=== PATIENT | male | born 1950 | race Two or more races ===

== ENCOUNTER 2017-04-09 15:23 | Inpatient (IN) | payer OTHER ==
[~2017-04-09] VITALS: Ht 172.7 cm; Wt 90.7 kg
--- NOTE | 2017-04-09 15:31 | NUR ---
Leila nunez in [facility] - 04/09/17 at 1634 by CHUCKY CARON EDWARDS AT [facility] FOR EVAL.
--- NOTE | 2017-04-09 15:32 | NUR ---
PT BIBRA FROM SN[facility] TO ER BED 11. PER REPORT, PT WAS EXPRESSING SI BUT NO ACTIVE PLAN. 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 DENIES PAIN OR ANY DISCOMFORT. STABLE VITALS. AWAITING MD DE PAZ.
--- NOTE | 2017-04-09 15:35 | NUR ---
DR EDWARDS AT BEDSIDE FOR EVAL.
--- NOTE | 2017-04-09 15:37 | NUR ---
INFORMED NURSE SUP FOR GPS BED
[2017-04-09 15:38] LABS: BASOPHILS # (AUTO) 0.1 /CMM (0.0-0.2); BASOPHILS % (AUTO) 0.7 % (0.0-2.0); EOSINOPHILS # (AUTO) 0.3 /CMM (0.0-0.7); EOSINOPHILS % (AUTO) 3.5 % (0.0-6.0); HEMATOCRIT 49 % (39-51); HEMOGLOBIN 16.3 g/dL (13.5-17.5); LYMPHOCYTES # (AUTO) 2.2 /CMM (0.8-4.8); LYMPHOCYTES % (AUTO) 26.1 % (20.0-44.0); MEAN CORPUSCULAR HEMOGLOBIN 30 PG (26.0-33.0); MEAN CORPUSCULAR HGB CONC 33 g/dl (31.0-36.0); MEAN CORPUSCULAR VOLUME 89 fL (80-96); MONOCYTES # (AUTO) 0.7 /CMM (0.1-1.30); MONOCYTES % (AUTO) 7.8 % (2.0-12.0); NEUTROPHILS # (AUTO) 5.2 /CMM (1.8-8.9); NEUTROPHILS % (AUTO) 61.9 % (43.0-81.0); PLATELET COUNT (AUTO) 245 /CMM (150-450); RED BLOOD CELL COUNT(AUTO) 5.54 MIL/uL (4.5-6.0); WHITE BLOOD COUNT (AUTO) 8.6 K/uL (4.3-11.0)
[2017-04-09 15:48] LABS: CALCIUM, SERUM 9.2 mg/dL (8.5-10.1); CARBON DIOXIDE 31 mmol/L (21-32); CHLORIDE 104 mmol/L (98-107); GLUCOSE 121 mg/dL (74-106); POTASSIUM 3.7 mmol/L (3.5-5.1); SODIUM SERUM 140 mmol/L (136-145); UREA NITROGEN, BLOOD 13 mg/dL (7-18)
[2017-04-09 15:53] LABS: ALANINE AMINOTRANSFERASE 21 U/L (12-78); ALBUMIN 3.9 g/dL (3.4-5.0); ALKALINE PHOSPHATASE 111 U/L (46-116); ASPARTATE AMINOTRANSFERASE 16 U/L (15-37); BILIRUBIN,DIRECT 0.1 mg/dL (0.0-0.2); BILIRUBIN,TOTAL 0.5 mg/dL (0.2-1.0); TOTAL PROTEIN, SERUM 7.9 g/dL (6.4-8.2)
[2017-04-09 15:54] LABS: ACETAMINOPHEN < 2 ug/ml (10-30); ALCOHOL, BLOOD < 3 mg/dL (0-0); SALICYLATE < 2.8 mg/dL (2.8-20.0)
[2017-04-09] MEDS ORDERED: ATOR20TA PO (16:04)
[2017-04-09 16:18] LABS: APPEARANCE,URINE Clear (CLEAR); BILIRUBIN,URINE Negative (NEGATIVE); BLOOD, URINE Negative Ery/uL (NEGATIVE); COLOR,URINE Yellow (YELLOW); KETONES,URINE Negative (NEGATIVE); LEUKOCYTE ESTERASE ,URINE Small (NEGATIVE); NITRITE, URINE Negative (NEGATIVE); PROTEIN,URINE Negative (NEGATIVE); UGLUCOSE Negative (NEGATIVE); UROBILINOGEN,URINE 0.2 EU/dL (0.2)
[2017-04-09 17:05] LABS: BACTERIA,URINE None seen /HPF (None Seen); RBC,URINE 0-2 /HPF (0-2); SQUAMOUS EPITHELIAL CELL,UR Few /HPF (None Seen)
[2017-04-09 17:50] VITALS: BP 139/89
[2017-04-09] MEDS ORDERED: MAGNESIUM HYDROXIDE 30 ML UDC PO PRN (18:00)
[2017-04-09] MEDS ORDERED: ACETAMINOPHEN 325 MG TABLET PO PRN (18:00)
[2017-04-09] MEDS ORDERED: MAG HYDROX/AL HYDROX/SIMETH 30 ML UDC PO PRN (18:00)
[2017-04-09] MEDS ORDERED: LORAZEPAM 0.5 MG TABLET PO PRN (18:00)
--- NOTE | 2017-04-09 18:00 | NUR ---
pt on a 5150 involuntary hold. Per hold, he is depressed. feeling lonely and stressed. Pt is under the care of dr gross and dr. perez. pt is alert oriented x 3 and ambulatory. he is calm and cooperative. vital sign stable. no acute distress noted. Psych and mold carrier aware of patient admission to [facility] and obtained routine orders. skin assessment done. belongings collected and placed in locker. Placed in room 211A. Admission process incomplete. Will endorsed to PM shift nurse to complete admission process.
[2017-04-09 20:11] VITALS: BP 113/62
[2017-04-09 20:18] VITALS: BP 112/55
--- NOTE | 2017-04-09 20:40 | NUR ---
ADMISSION NOTES ADMITTED THIS 66 Y/O MALE PATIENT ADMIT FROM [facility] ER/ , PT IS ON 5150 HOLD FOR GD ,DANGER TO SELF , PER HOLD PT. IS DEPRESSED HAS BLUNTED AFFECT, SUICIDIAL IDEATION , UPON FACE TO FACE ASSESSMENT PATIENT IS A&O X3, PT. DENIES SI / HI AT THIS TIME , DENIES ANY PAIN DISCOMFORT AT THIS TIME ,CALM COOPERTIVE , V/S WNL, NO ACUTE DISTRESS NOTED, HX OF HIGH CHOLESTEROL , MD AWARE AND NOTIFIED OF THE ADMISSION , ENCOURAGED PT. VERBALIZED ANY FEELING CONCERN TO STAFF, ORIENT TO UNIT POLICY, WILL CONTINUE TO MONITOR FOR Q15 SAFETY AND BEHAVIOR.
[2017-04-09] MEDS: ATORVASTATIN 10 MG TABLET PO SCH (21:26)
[2017-04-10 07:28] LABS: CHOLESTEROL 121 mg/dL (<200); HDL CHOLESTEROL 37 mg/dL (40-60); LDL 81 mg/dL (0-99); TRIGLYCERIDES 157 mg/dL (30-150)
[2017-04-10 07:29] LABS: ALBUMIN 3.4 g/dL (3.4-5.0); BILIRUBIN,TOTAL 0.5 mg/dL (0.2-1.0); CALCIUM, SERUM 9.1 mg/dL (8.5-10.1); CREATININE 1.2 mg/dL (0.6-1.3); POTASSIUM 4.1 mmol/L (3.5-5.1); TOTAL PROTEIN, SERUM 7.1 g/dL (6.4-8.2)
[2017-04-10 08:00] VITALS: BP 109/70
--- NOTE | 2017-04-10 10:47 | NUR ---
MAINOR contacted Celeste Singer from [employer] (pts insurance provider) for UR review purposes. MAINOR left a detailed message requesting a call back. MAINOR will follow up.
--- NOTE | 2017-04-10 15:29 | NUR ---
CALLED AND LEFT A MESSAGE TO DR. SHEETS FOR THE CONSULT.
[2017-04-10 16:00] VITALS: BP 121/74
[2017-04-10] MEDS ORDERED: DULOXETINE HCL 30 MG CAPSULE.DR PO SCH (17:00)
[2017-04-10 20:00] VITALS: BP 119/68
[2017-04-10] MEDS: ATORVASTATIN 10 MG TABLET PO SCH (21:54)
[2017-04-10] MEDS: TEMAZEPAM 7.5 MG CAPSULE PO PRN (21:54)
[2017-04-11 08:00] VITALS: BP 135/89
--- NOTE | 2017-04-11 10:53 | NUR ---
MAINOR contacted Celeste Singer from [employer] (pts insurance provider) for UR review purposes again on this date. MAINOR left a detailed message requesting a call back. MAINOR will follow up.
--- NOTE | 2017-04-11 15:01 | NUR ---
Initial Discharge Plan: Pt resides in an apartment, [address] [address] [place] [id number] with his and step son. Pt does not have a contact telephone #. Pt would like to return home upon discharge. SW will follow up with pts family to ensure pt is safely and properly discharged. Pt did not have any identifying information for an emergency blocker and cutter contact lens. SW will follow up. SW will help form a safe and proper discharge.
[2017-04-11 16:00] VITALS: BP 132/80
[2017-04-11 16:05] VITALS: BP 132/80
[2017-04-11] MEDS: SERTRALINE HCL 25 MG TABLET PO SCH (17:22)
[2017-04-11 20:00] VITALS: BP 136/74
[2017-04-11] MEDS: ATORVASTATIN 10 MG TABLET PO SCH (21:53)
[2017-04-11] MEDS: TEMAZEPAM 7.5 MG CAPSULE PO PRN (21:53)
[2017-04-12 08:00] VITALS: BP 113/80
[2017-04-12] MEDS: SERTRALINE HCL 25 MG TABLET PO SCH (08:35)
[2017-04-12] MEDS ORDERED: SERTRALINE HCL 25 MG TABLET PO SCH (09:00)
--- NOTE | 2017-04-12 09:20 | NUR ---
DR. BECERRA GAVE AN ORDER TO D/C HOLD AND D/C HOME AND TO FOLLOW UP WITH PSYCH AND MEDICAL DOCTORS. DAUGHTER EVIE NOTIFIED ABOUT THE DISCHARGE AND SAID SHE COME AT 2:00 PM TO PICK HIM UP.
--- NOTE | 2017-04-12 14:15 | NUR ---
GPS/RN PT LEFT HOME WITH HIS DAUGHTER VIA PRIVATE CAR. NO SI OR HI AT THE TIME OF D/C. PRESCRIPTIONS AND EXIT CARE INSTRUCTIONS GIVEN AND UNDERSTOOD. PROPERTY RETURNED. ID BAND REMOVED. VSS. PT AMBULATORY. MD REFERRALS PROVIDED.
--- NOTE | 2017-04-14 09:57 | NUR ---
Discharge Note: Patient was discharged home on Friday04/12/17, [address] [place] [address] via private transportation at 2pm. Pts and pts daughter, Sarah Murdock have been notified and are in agreement. Pt was referred to [facility]: Dr. Teixeira, [address] [place] [address]; and psychiatrist: Dr. Aidee Mejia; [address] [place] [address]; .
== END 2017-04-12 14:15 | disposition home or self-care (01) | DRG 885 ==
LOC: ER 15:24 → GPS 16:22
PROVIDERS: ADMIT Psychiatry & Neurology Psychosomatic Medicine; ATTEND Psychiatry & Neurology Psychosomatic Medicine
DX: F33.2 Major depressive disorder, recurrent severe without psychotic features (principal); F29 Unspecified psychosis not due to a substance or known physiological condition; R45.851 Suicidal ideations; E78.5 Hyperlipidemia, unspecified; Z73.6 Limitation of activities due to disability; F41.9 Anxiety disorder, unspecified
CPT/HCPCS: 36415; 80048-TC; 80053-TC; 80061-TC; 80076-TC; 80305; 81000-TC; 85025-TC; 87081-TC; A4606; G0480; Z7610